=== PATIENT | male | born 1985 | race Caucasian/White ===

== ENCOUNTER 2016-12-05 18:54 | Inpatient (IN) | payer OTHER ==
[2016-12-05 21:07] VITALS: BMI 23.8
--- NOTE | 2016-12-05 23:15 | HP ---
Admission ROS [facility] - [facility] Chief Complaint: I WANT TO GO TO REHAB Allergies/Adverse Reactions: Allergies Allergy/AdvReac Type Severity Reaction Status Date / Time Sulfa (Sulfonamide Allergy Severe Swelling Verified 12/05/16 22:44 Antibiotics) vancomycin Allergy Severe Hives Verified 12/05/16 22:44 History of Present Illness: 31 YEARS OLD WITH LONG HISTORY OF AMPHETAMINE NICOTINE DEPENDENCE HAS ASTHMA HIV AND ANXIETY IS ADMITTED TO REHAB Exam Limitations: No Limitations - Ebola screening Have you traveled outside of the country in the last 21 days: No (N) Have you had contact with anyone from an Ebola affected area: No Have you been sick,other than usual withdrawal symptoms: No Do you have a fever: No - Review of Systems Constitutional: Loss of Appetite, Unintentional Wgt. Loss, Unexplained wgt Loss EENT: reports: No Symptoms Reported Respiratory: reports: No Symptoms reported Cardiac: reports: No Symptoms Reported GI: reports: No Symptoms Reported : reports: No Symptoms Reported Musculoskeletal: reports: No Symptoms Reported Integumentary: reports: Change in Color (RIGHT AND LEFT INNER ELBOWS) Neuro: reports: No Symptoms reported Endocrine: reports: No Symptoms Reported Hematology: reports: No Symptoms Reported Psychiatric: reports: Judgement Intact, Orientated x3, Anxious, Depressed Other Systems: Reviewed and Negative Patient History - Patient Medical History Hx Anemia: No Hx Asthma: Yes Hx Chronic Obstructive Pulmonary Disease (COPD): No Hx Cancer: No Hx Cardiac Disorders: No Hx Congestive Heart Failure: No Hx Hypertension: No Hx Hypercholesterolemia: No Hx Pacemaker: No HX Cerebrovascular Accident: No Hx Seizures: No Hx Dementia: No Hx Diabetes: No Hx Gastrointestinal Disorders: No Hx Liver Disease: No Hx Genitourinary Disorders: No Hx Sexually Transmitted Disorders: No Hx Renal Disease (ESRD): No Hx Thyroid Disease: No Hx Human Immunodeficiency Virus (HIV): No Hx Hepatitis C: No Hx Depression: Yes Hx Suicide Attempt: No Hx Bipolar Disorder: No Hx Schizophrenia: No - Patient Surgical History Past Surgical History: Yes Hx Neurologic Surgery: No Hx Cataract Extraction: No Hx Cardiac Surgery: No Hx Lung Surgery: No Hx Breast Surgery: No Hx Breast Biopsy: No Hx Abdominal Surgery: No Hx Appendectomy: No Hx Cholecystectomy: No Hx Genitourinary Surgery: No Hx Orthopedic Surgery: Yes (LEFT KNEE 2006) Anesthesia Reaction: No - PPD History Previous Implant?: Yes Documented Results: Negative w/o proof Implanted On Prior [facility] Admission?: No PPD to be Administered?: Yes - Smoking Cessation Smoking history: Current every day smoker Have you smoked in the past 12 months: Yes Aproximately how many cigarettes per day: 4 Cigars Per Day: 0 Hx Chewing Tobacco Use: No Initiated information on smoking cessation: Yes 'Breaking Loose' booklet given: 12/05/16 - Substance & Tx. History Hx Alcohol Use: No Hx Substance Use: Yes Substance Use Type: None (AMP + MET + MDMA) Hx Substance Use Treatment: No - Substances Abused Methamphetamine Route: Injection Frequency: Daily Amount used: 1 G Age of first use: 22 Date of Last Use: 12/05/16 Family Disease History - Family Disease History Family Disease History: Other: Father (), Mother () Admission Physical Exam S - Vital Signs Vital Signs: Vital Signs - 24 hr 12/05/16 21:02 Temperature 95.6 F L Pulse Rate 100 H Respiratory 18 Rate Blood Pressure 114/68 - Physical General Appearance: Yes: No Apparent Distress, Appropriately Dressed, Thin HEENTM: Yes: Hearing grossly Normal, Normal ENT Inspection, Normocephalic, Normal Voice Respiratory: Yes: Chest Non-Tender, Lungs Clear, Normal Breath Sounds, No Respiratory Distress, No Accessory Muscle Use Neck: Yes: Supple, Trachea in good position Breast: Yes: Breasts Symetrical Cardiology: Yes: Regular Rhythm, S1, S2, Tachycardia Abdominal: Yes: Normal Bowel Sounds, Soft Genitourinary: Yes: Within Normal Limits Back: Yes: Normal Inspection Musculoskeletal: Yes: full range of Motion, Gait Steady Extremities: Yes: Normal Range of Motion, Non-Tender Neurological: Yes: Fully Oriented, Alert, Motor Strength 5/5, Normal Response, Depressed Affect Integumentary: Yes: Warm, Track Grey Lymphatic: Yes: Within Normal Limits - Diagnostic (1) Methamphetamine dependence Current Visit: Yes Status: Acute (2) Nicotine dependence Current Visit: Yes Status: Acute Qualifiers: Nicotine product type: cigarettes Substance use status: in withdrawal Qualified Code(s): F17.213 - Nicotine dependence, cigarettes, with withdrawal (3) Asthma Current Visit: Yes Status: Chronic Qualifiers: Asthma severity: mild intermittent Asthma complication type: with status asthmaticus Qualified Code(s): J45.22 - Mild intermittent asthma with status asthmaticus (4) HIV (human immunodeficiency virus infection) Current Visit: Yes Status: Chronic Comment: STRIBILD LAST DOSE "A MONTH AGO" PATIENT HAS NOT BROUGHT IN THE MEDICATION (5) Weight loss Current Visit: Yes Status: Acute (6) Anxiety and depression Current Visit: Yes Status: Suspected Cleared for Admission [facility] - Detox or Rehab [facility] Level of Care: Observation Bed Detox Regimen/Protocol: Not Applicable Claeared for Rehab Admission: Yes [facility] Breath Alcohol Content Breath Alcohol Content: 0 Urine Drug Screen - Results Drug Screen Negative: No Urine Drug Screen Results: AMP-Amphetamines, MET-Methamphetamine, MDMA-Ecstasy
[2016-12-05] MEDS ORDERED: MENTHOL/PHENOL 1 EACH UD MM PRN (23:21)
[2016-12-05] MEDS ORDERED: P-EPHED 60MG/TRIPROLIDI 2.5MG TABLET PO PRN (23:21)
[2016-12-05] MEDS ORDERED: ACETAMINOPHEN 325 MG TABLET (FP) PO PRN (23:21)
[2016-12-05] MEDS ORDERED: MAG HYDROX/AL HYDROX/SIMETH 30 ML UNIT-DOSE CUP PO PRN (23:21)
[2016-12-05] MEDS ORDERED: MAGNESIUM HYDROX 2400MG/30ML ORAL SUSPENSION 30 ML CUP PO PRN (23:21)
[2016-12-05] MEDS ORDERED: IBUPROFEN 400 MG TABLET (FP) PO PRN (23:21)
[2016-12-05] MEDS ORDERED: guaiFENesin/D-METHORPHAN HB 10 ML UNIT-DOSE CUPS PO PRN (23:21)
[2016-12-05] MEDS ORDERED: MAGNESIUM CITRATE 300 ML BOTTLE PO PRN (23:21)
[2016-12-05] MEDS ORDERED: LOPERAMIDE HCL 2 MG CAPSULE PO PRN (23:21)
[2016-12-05] MEDS ORDERED: hydrOXYzine PAMOATE 50 MG CAPSULE (FP) PO PRN (23:26)
[2016-12-05] MEDS ORDERED: NICOTINE 14 MG/24 HOURS TOPICAL PATCH TD PRN (23:26)
[2016-12-05] MEDS ORDERED: NICOTINE POLACRILEX 2 MG GUM BUC PRN (23:26)
--- NOTE | 2016-12-05 23:42 | HP ---
Admission [facility] - [facility] Allergies/Adverse Reactions: Allergies Allergy/AdvReac Type Severity Reaction Status Date / Time Sulfa (Sulfonamide Allergy Severe Swelling Verified 12/05/16 22:44 Antibiotics) vancomycin Allergy Severe Hives Verified 12/05/16 22:44 - Ebola screening Have you traveled outside of the country in the last 21 days: No (N) Have you had contact with anyone from an Ebola affected area: No Have you been sick,other than usual withdrawal symptoms: No Do you have a fever: No Patient History - Patient Medical History Hx Anemia: No Hx Asthma: Yes Hx Chronic Obstructive Pulmonary Disease (COPD): No Hx Cancer: No Hx Cardiac Disorders: No Hx Congestive Heart Failure: No Hx Hypertension: No Hx Hypercholesterolemia: No Hx Pacemaker: No HX Cerebrovascular Accident: No Hx Seizures: No Hx Dementia: No Hx Diabetes: No Hx Gastrointestinal Disorders: No Hx Liver Disease: No Hx Genitourinary Disorders: No Hx Sexually Transmitted Disorders: No Hx Renal Disease (ESRD): No Hx Thyroid Disease: No Hx Human Immunodeficiency Virus (HIV): No Hx Hepatitis C: No Hx Depression: Yes Hx Suicide Attempt: No Hx Bipolar Disorder: No Hx Schizophrenia: No - Patient Surgical History Past Surgical History: Yes Hx Neurologic Surgery: No Hx Cataract Extraction: No Hx Cardiac Surgery: No Hx Lung Surgery: No Hx Breast Surgery: No Hx Breast Biopsy: No Hx Abdominal Surgery: No Hx Appendectomy: No Hx Cholecystectomy: No Hx Genitourinary Surgery: No Hx Orthopedic Surgery: Yes (LEFT KNEE 2005) Anesthesia Reaction: No - PPD History Previous Implant?: Yes Documented Results: Negative w/o proof Implanted On Prior [facility] Admission?: No - Smoking Cessation Smoking history: Current every day smoker Have you smoked in the past 12 months: Yes Aproximately how many cigarettes per day: 4 Cigars Per Day: 0 Hx Chewing Tobacco Use: No Initiated information on smoking cessation: Yes 'Breaking Loose' booklet given: 12/05/16 - Substances Abused Methamphetamine Route: Injection Frequency: Daily Amount used: 1 G Age of first use: 22 Date of Last Use: 12/05/16 Family Disease History - Family Disease History Family Disease History: Other: Father (), Mother () Admission Physical Exam S - Vital Signs Vital Signs: Vital Signs - 24 hr 12/05/16 21:02 Temperature 95.6 F L Pulse Rate 100 H Respiratory 18 Rate Blood Pressure 114/68 - Diagnostic (1) Methamphetamine dependence Current Visit: Yes Status: Acute (2) Nicotine dependence Current Visit: Yes Status: Acute Qualifiers: Nicotine product type: cigarettes Substance use status: in withdrawal Qualified Code(s): F17.213 - Nicotine dependence, cigarettes, with withdrawal (3) Asthma Current Visit: Yes Status: Chronic Qualifiers: Asthma severity: mild intermittent Asthma complication type: with status asthmaticus Qualified Code(s): J45.22 - Mild intermittent asthma with status asthmaticus (4) HIV (human immunodeficiency virus infection) Current Visit: Yes Status: Chronic Comment: STRIBILD LAST DOSE "A MONTH AGO" PATIENT HAS NOT BROUGHT IN THE MEDICATION (5) Weight loss Current Visit: Yes Status: Acute (6) Anxiety and depression Current Visit: Yes Status: Suspected [facility] Breath Alcohol Content Breath Alcohol Content: 0 Urine Drug Screen - Results Drug Screen Negative: No Urine Drug Screen Results: AMP-Amphetamines, MET-Methamphetamine, MDMA-Ecstasy Inpatient Rehab Admission - Initial Determination Are CD services needed?: Yes Free of communicable disease: Yes Not in need of hospitalization: Yes - Rehab Admission Criteria Previous failed treatment: Yes Poor recovery environment: Yes Comorbidities: Yes Lacks judgement: No Patient is meeting Inpatient Rehab admission criteria:: Yes
[2016-12-06 01:45] LABS: URINE APPEARANCE SLCLOUDY; URINE BILIRUBIN NEGATIVE (NEGATIVE); URINE BLOOD NEGATIVE (NEGATIVE); URINE COLOR AMBER; URINE GLUCOSE (UA) NEGATIVE (NEGATIVE); URINE KETONE NEGATIVE (NEGATIVE); URINE LEUK ESTERASE NEGATIVE (NEGATIVE); URINE NITRITE NEGATIVE (NEGATIVE)
[2016-12-06 01:52] LABS: URINE PROTEIN 1+ (NEGATIVE)
[2016-12-06 01:59] LABS: URINE MUCUS MANY; URINE RBC 2 /hpf (0-3); URINE WBC 2 /hpf (3-5)
[2016-12-06] MEDS ORDERED: TUBERCULIN PPD 5 TU/0.1ML VIAL ID ONE (07:16)
--- NOTE | 2016-12-06 09:53 | EKG ---
Test Reason : Blood Pressure : / mmHG Vent. Rate : 083 BPM Atrial Rate : 083 BPM P-R Int : 160 ms QRS Dur : 080 ms QT Int : 416 ms P-R-T Axes : 014 012 022 degrees QTc Int : 488 ms NORMAL SINUS RHYTHM SEPTAL INFARCT , AGE UNDETERMINED ABNORMAL ECG WHEN COMPARED WITH ECG OF 05-DEC-2016 23:31, NO SIGNIFICANT CHANGE WAS FOUND Confirmed by DMITRI EASLEY MD ([id number]) on 12/06/2016 9:53:20 AM Referred By: Confirmed By:DMITRI EASLEY MD
--- NOTE | 2016-12-06 09:54 | EKG ---
Test Reason : Blood Pressure : / mmHG Vent. Rate : 085 BPM Atrial Rate : 085 BPM P-R Int : 156 ms QRS Dur : 082 ms QT Int : 408 ms P-R-T Axes : 061 011 017 degrees QTc Int : 485 ms NORMAL SINUS RHYTHM NONSPECIFIC T WAVE ABNORMALITY PROLONGED QT ABNORMAL ECG NO PREVIOUS ECGS AVAILABLE Confirmed by KAUSHAL KUMARI, DMITRI ([id number]) on 12/06/2016 9:53:50 AM Referred By: Confirmed By:DMITRI EASLEY MD
[2016-12-06] MEDS: PRENATAL VITAMINS W/ FOLIC ACID TABLET (FP) PO SCH (10:20)
[2016-12-06] MEDS ORDERED: DIVALPROEX SODIUM 500 MG TABLET E.C. PO SCH (12:00)
--- NOTE | 2016-12-06 13:26 | HP ---
Psychiatrist Admission - Data Date of interview: 12/06/16 Admission source: [facility] Identifying data: This is the first 5N inpatient rehabilitation admission for this 31 year old single AA male who is unemployed and domiciled residing with his brother in [facility]. Medical History: HIV+ since 2008, Left knee surgery in 2005, smokes cigarettes 2 -4 a day. Psychiatric History: Patient reports short history of treatment for depression "long time ago", reports he feels fine just very tired since "have not sleep for 6 days, was using drugs". Physical/Sexual Abuse/Trauma History: Denies history of sexual, physical and verbal abuse. Vital Signs: Vital Signs - 24 hr 12/05/16 12/06/16 12/06/16 21:02 00:30 00:53 Temperature 95.6 F L 97.9 F Pulse Rate 100 H 93 H Respiratory 18 16 18 Rate Blood Pressure 114/68 120/78 12/06/16 12/06/16 03:26 06:53 Temperature 98.0 F Pulse Rate 93 H Respiratory 18 16 Rate Blood Pressure 99/60 Allergies/Adverse Reactions: Allergies Allergy/AdvReac Type Severity Reaction Status Date / Time Sulfa (Sulfonamide Allergy Severe Swelling Verified 12/06/16 00:38 Antibiotics) vancomycin Allergy Severe Hives Verified 12/06/16 00:38 Date of last physical exam: 12/05/16 Concur with the findings of this exam: Yes - Substance Abuse/Tx History Hx Alcohol Use: No Hx Substance Use: Yes (Methamphetamine IV use, started at age of ,MDMA, met, injection, since 22y ) Hx Substance Use Treatment: Yes Mental Status Exam - Mental Status Exam Alert and Oriented to: Time, Place, Person Cognitive Function: Grossly Intact Patient Appearance: Well Groomed Affect: Appropriate, Mood Congruent, Normal Range Patient Behavior: Appropriate, Cooperative Speech Pattern: Clear, Appropriate Voice Loudness: Normal Thought Process: Intact, Goal Oriented Thought Disorder: Not Present Hallucinations: Denies Suicidal Ideation: Denies Homicidal Ideation: Denies Insight/Judgement: Fair Sleep: Fair Appetite: Good Muscle strength/Tone: Normal Gait/Station: Normal Psychiatric Findings - Problem List ([place] 1, 2,3) (1) Methamphetamine dependence Current Visit: Yes Status: Acute (2) Nicotine dependence Current Visit: Yes Status: Acute Qualifiers: Nicotine product type: cigarettes Substance use status: in withdrawal Qualified Code(s): F17.213 - Nicotine dependence, cigarettes, with withdrawal (3) HIV (human immunodeficiency virus infection) Current Visit: Yes Status: Chronic Comment: STRIBILD LAST DOSE "A MONTH AGO" PATIENT HAS NOT BROUGHT IN THE MEDICATION - Initial Treatment Plan Initial Treatment Plan: will monitor progress as needed.
[2016-12-06 13:36] LABS: MCH 30.4 pg (25.7-33.7); MCHC 32.6 g/dl (32.0-35.9); MEAN CELL VOLUME 93.3 fl (80-96); MEAN PLT VOLUME 9.6 fl (7.5-11.1); PLATELET COUNT 179 K/MM3 (134-434); RDW 14.6 % (11.9-15.9); WHITE BLOOD COUNT 5.6 K/mm3 (4.0-10.0)
[2016-12-06 14:21] LABS: ALBUMIN 3.2 g/dl (3.4-5.0); ALK PHOS 66 U/L (45-117); ANION GAP 6 (8-16); BILIRUBIN,TOTAL 0.4 mg/dL (0.2-1.0); CALCIUM 8.3 mg/dL (8.5-10.1); CO2 29 mmol/L (21-32); CREATININE 0.8 mg/dL (0.7-1.3); GLUCOSE,RANDOM 77 mg/dL (74-106); SGOT/AST 20 U/L (15-37); SGPT/ALT 24 U/L (12-78); TOT PROT 6.8 g/dl (6.4-8.2)
[2016-12-06] MEDS: diphenhydrAMINE HCL 50 MG CAPSULE PO PRN (21:16)
[2016-12-06] MEDS: THIAMINE HCL 100 MG TABLET (FP) PO SCH (21:16)
[2016-12-07] MEDS: PRENATAL VITAMINS W/ FOLIC ACID TABLET (FP) PO SCH (10:08)
[2016-12-07] MEDS: THIAMINE HCL 100 MG TABLET (FP) PO SCH (21:22)
[2016-12-07] MEDS: diphenhydrAMINE HCL 50 MG CAPSULE PO PRN (21:22)
[2016-12-08 07:13] VITALS: BP 125/96; PULSE 101; TEMP 97.1
--- NOTE | 2016-12-08 11:21 | PN ---
Psychiatric Progress Note Vital Signs: Vital Signs Period Temp Pulse Resp BP Sys/Fernandez Pulse Ox Last 24 Hr 97.1 F 101 16-18 125/96 Date of Session: 12/08/16 Chief Complaint:: "I am leaving " HPI: Patient is a 31 year old male admitted on 10/04/16 with history of methamp. and nicotine dependence. ROS: Asthma,HIV Lt Knee surgery on 2005. Current Medications: Active Medications Generic Name Dose Route Start Last Admin Trade Name Freq PRN Reason Stop Dose Admin Acetaminophen 650 mg 12/05/16 23:21 Tylenol - PO Q4H PRN PAIN Al Hydroxide/Mg Hydroxide 30 ml 12/05/16 23:21 Mylanta Oral Suspension - PO Q6H PRN DYSPEPSIA Diphenhydramine HCl 50 mg 12/05/16 23:21 12/07/16 21:22 Benadryl - PO 50 mg HSMR1 PRN Administration INSOMNIA Eucalyptus/Menthol/Phenol/Sorbitol 1 each 12/05/16 23:21 Cepastat Lozenge - MM Q4H PRN SORE THROAT Guaifenesin 10 ml 12/05/16 23:21 Robitussin Dm - PO Q6H PRN COUGH Hydroxyzine Pamoate 50 mg 12/05/16 23:26 Vistaril - PO Q4H PRN AGITATION Ibuprofen 400 mg 12/05/16 23:21 Motrin - PO Q6H PRN SEVERE PAIN Loperamide HCl 4 mg 12/05/16 23:21 Imodium - PO Q6H PRN DIARRHEA Magnesium Citrate 300 ml 12/05/16 23:21 Citroma - PO Q48H PRN CONSTIPATION Magnesium Hydroxide 30 ml 12/05/16 23:21 Milk Of Magnesia - PO DAILY PRN CONSTIPATION Nicotine 14 mg 12/05/16 23:26 Nicoderm Patch - TD DAILY PRN WITHDRAWAL(CONT SUBST) Nicotine Polacrilex 2 mg 12/05/16 23:26 Nicorette Gum - BUC Q2H PRN NICOTINE REPLACEMENT RX Multivit/Folic Acid/Iron 1 tab 12/06/16 10:00 12/07/16 10:08 Vitamins ([facility]) - PO 1 tab DAILY XIN Administration Pseudoephedrine/Triprolidine 1 combo 12/05/16 23:21 Actifed - PO TID PRN NASAL CONGESTION Thiamine HCl 100 mg 12/06/16 22:00 12/07/16 21:22 Vitamin B1 - PO 100 mg HS XIN Administration Current Side Effect: No Lab tests ordered: No Lab tests reviewed: Yes Provider note:: Patient reported that he does not want to stay in the treatment and wants to leave AMA, met with the patient to explore reasons for not completing treatment, patient was encouraged to stay in the treatment but adamant to leave, patient is stable for AMA discharge. Total face to face time:: 10 Mental Status Exam - Mental Status Exam Alert and Oriented to: Time, Place, Person Cognitive Function: Good Patient Appearance: Well Groomed Mood: Hopeful Affect: Appropriate, Mood Congruent Patient Behavior: Cooperative Speech Pattern: Clear, Appropriate Voice Loudness: Normal Thought Process: Intact, Goal Oriented Thought Disorder: Not Present Hallucinations: Denies Suicidal Ideation: Denies Homicidal Ideation: Denies Insight/Judgement: Fair Sleep: Fair Appetite: Good Muscle strength/Tone: Normal Gait/Station: Normal Psychiatric Treatment Plan - Problem List (1) Methamphetamine dependence Current Visit: Yes (2) Nicotine dependence Current Visit: Yes Qualifiers: Nicotine product type: cigarettes Substance use status: in withdrawal Qualified Code(s): F17.213 - Nicotine dependence, cigarettes, with withdrawal
[2016-12-08] MEDS: PRENATAL VITAMINS W/ FOLIC ACID TABLET (FP) PO SCH (11:23)
== END 2016-12-08 11:15 | disposition left against medical advice (07) | DRG 770 ==
LOC: YASAS 18:54 → Y5N 22:49
PROVIDERS: ADMIT Psychiatry & Neurology Psychiatry; ATTEND Psychiatry & Neurology Psychiatry
PROC: HZ42ZZZ Group Counseling for Substance Abuse Treatment, Cognitive-Behavioral (ICD-10-PCS; principal; 2016-12-05)
DX: F15.20 Other stimulant dependence, uncomplicated (principal); F17.213 Nicotine dependence, cigarettes, with withdrawal; F41.8 Other specified anxiety disorders; Z21 Asymptomatic human immunodeficiency virus [HIV] infection status; J45.22 Mild intermittent asthma with status asthmaticus; R63.4 Abnormal weight loss; Z68.23 Body mass index [BMI] 23.0-23.9, adult
CPT/HCPCS: 36415; 80053; 81003; 81015; 85027; 86593; 86780; 86803; 93005; 93010